=== PATIENT | female | born 1995 | race African-American/Black ===

== ENCOUNTER 2020-06-03 07:59 | Emergency (ER) | payer SELFPAY ==
[~2020-06-03] VITALS: Ht 167.6 cm; Wt 85.0 kg
[2020-06-03 07:59] VITALS: BP 167/100
--- NOTE | 2020-06-03 08:12 | PHYS DOC ---
Past Medical History Past Medical History: No Pertinent History Past Surgical History: No Surgical History Alcohol Use: None Drug Use: None General Adult EDM: Chief Complaint: hand injury HPI: HPI: 25-year-old female presents emergency department with a hand laceration on the dorsum of the hand. The patient comes in by EMS. Patient will not answer any of her questions. She allowed me to look at her wound but will not allow me to examine it closely or touch it. She is able to move her fingers without difficulty but will not allow me to touch her hand. It is unclear whether this laceration happened within 12 hours. My concern for repairing it is multiple: 1. She will not even allow me to examine her hand so I do not believe that she will allow me to repair the hand. 2. It is unclear how long this laceration has been present it does not appear extremely fresh but is not a week or more old. Patient will not tell me how old the wound is. Review of systems, past medical history, surgical history, allergies and social history are unable to be obtained because the patient will not answer any of my questions. ED course: 25-year-old female comes in with a hand laceration of unclear timeframe. The patient will not answer any of our questions, will not allow us to do vital signs. I have ordered for a tetanus to be updated. We will attempt to discuss with the patient about the importance of us examining the wound doing vital signs and providing medical care for her. Time is now 810. After further discussion with the patient she allowed us to evaluate the wound closer. It is a simple superficial laceration that is about 2-1/2 cm in length. There is no apparent foreign body after exploration of the wound. There is no debris. The wound appears to be less than 6 hours old after cleaning up the wound. It is a fresh wound. The patient cannot clarify the exact timeframe, however the the wound appears to be less than 6 hours old. Tetanus was updated. X-ray ordered. We will give the patient oral Keflex to prevent infection. X-ray shows cortical disruption at the base of the fifth metacarpal. Patient has a very flat affect. She does not have point tenderness in that area but she is a very poor historian and does not even answer yes or no. She does not wince when I press in that area. To be safe we will put the patient in a volar splint and refer her to orthopedic surgery. Otherwise she is to follow-up with her PCP for suture removal in 10 days. Heart Score: C/O Chest Pain: No Risk Factors: Risk Factors: DM, Current or recent (<one month) smoker, HTN, HLP, family history of CAD, obesity. Risk Scores: Score 0 - 3: 2.5% MACE over next 6 weeks - Discharge Home Score 4 - 6: 20.3% MACE over next 6 weeks - Admit for Clinical Observation Score 7 - 10: 72.7% MACE over next 6 weeks - Early Invasive Strategies Physical Exam: PE: Constitutional: Well developed, well nourished, no acute distress, non-toxic appearance. [] HENT: Normocephalic, atraumatic, bilateral external ears normal, oropharynx moist, no oral exudates, nose normal. [] Eyes: PERRLA, EOMI, conjunctiva normal, no discharge. [] Neck: Normal range of motion, no tenderness, supple, no stridor. [] Cardiovascular:Heart rate regular rhythm, no murmur [] Lungs & Thorax: Bilateral breath sounds clear to auscultation [] Abdomen: Bowel sounds normal, soft, no tenderness, no masses, no pulsatile masses. [] Skin: Warm, dry, no erythema, no rash. [] Back: No tenderness, no CVA tenderness. [] Extremities: The patient's right hand has a laceration that is approximately 2 cm in length. It is superficial and there does not appear to be any foreign body or tendon laceration associated. She is able to move her fingers but will not cooperate in make an A-OK giving thumbs up and crossing finger. She denies any numbness in her hand. She denies any other injuries. The remainder of her extremities are nontender with normal range of motion. Neurologic: Alert and oriented, normal motor function, normal sensory function, no focal deficits noted. [] Psychologic: Affect blunted, judgement normal, mood normal. denies si /hi. EKG: EKG: [] Radiology/Procedures: Radiology/Procedures: [] Course & Med Decision Making: Course & Med Decision Making Pertinent Labs and Imaging studies reviewed. (See chart for details) [] Dragon Disclaimer: Johanna Disclaimer: This electronic medical record was generated, in whole or in part, using a voice recognition dictation system. Departure Departure Impression: Primary Impression: Hand injury Additional Impression: Hand laceration Disposition: 01 DC HOME SELF CARE/HOMELESS Condition: STABLE Patient Instructions: Laceration Care, Adult Additional Instructions: EMERGENCY DEPARTMENT GENERAL DISCHARGE INSTRUCTIONS Follow-up with your primary physician in 10 days for suture removal. Follow-up with orthopedic surgery in 2 to 3 days for reevaluation of possible hand fracture. Return to the emergency department if you have any new or concerning findings. Thank you for coming to [facility] Emergency Department (ED) today and trusting us with you care. We trust that you had a positive experience in our Emergency Department. If you wish to speak to the department management, you may call the Director at [phone]. Follow up is important in emergency/acute care visits. This condition should be evaluated by your primary care physician and any necessary consulting services for continued management within a few days (1-2) after discharge. Return to the emergency department if you have any new or concerning symptoms including but not limited to fever, chills, nausea, vomiting, intractable pain, any new rashes, chest pain, shortness of breath, uncontrolled bleeding, difficulty breathing, and/or vision loss. 1. Do you have a private Doctor? If you do not have a private doctor, please ask for a resource list of physicians or clinics that may be able to assist you with follow up care. 2. If a lab test or culture has been done and does not come back immediately, your results will be reviewed and you will be notified if you need a change in treatment. 3. Your care today has been supervised by a physician who is specially trained in emergency care. Many problems require more than one evaluation for a complete diagnosis and treatment. We recommend that you schedule your follow up appointment as recommended to ensure complete treatment of you illness or injury. If you are unable to obtain follow up care and continue to have a problem, or if your condition worsens, we recommend that you return to the ED. 4. We are not able to safely determine your condition over the phone nor are we able to give sound medical advice over the phone. For these safety reasons, if you call for medical advice we will ask you to come to the ED for further evaluation. IF YOUR SYMPTOMS WORSEN OR NEW SYMPTOMS DEVELOP, OR YOU HAVE CONCERNS ABOUT YOUR CONDITION; OR IF YOUR CONDITION WORSENS WHILE YOU ARE WAITING FOR YOUR FOLLOW UP APPOINTMENT; EITHER CONTACT YOUR PRIMARY CARE DOCTOR, THE PHYSICIAN WHOSE NAME AND NUMBER YOU WERE GIVEN, OR RETURN TO THE ED IMMEDIATELY. Scripts Cephalexin (KEFLEX) 750 Mg Capsule 1 CAP PO TID for 7 Days, #21 CAP 0 Refills Prov: ROXANA CAMPUZANO MD 06/03/20 Laceration Repair Lac Repair Indication: laceration Procedure: The patient was placed in the appropriate position and anesthesia around the laceration with 3 cc of 1% lidocaine was used. The area was then c leansed with saline water and betadine. The laceration was sutured using simple interupted technique using 4-0 non absorable sutures. The wound area was then dressed with non adherant dressing. Total repaired wound length: 2.5 cm. Other Items: none The patient tolerated the procedure well. Complications: none. Splinting pt informed of findings. volar splint applied by material handling technician. The splint is checked by myself, and appropriate stabilization of the injury. Distal capillary refill nl and distal neurologic function intact. ROXANA CAMPUZANO MD Jun 03, 2020 08:11
[2020-06-03] MEDS ORDERED: LIDOCAINE 1% Multi-Dose 20 ML VIAL. ONE (08:15)
[2020-06-03] MEDS ORDERED: CEPH750C9 PO (08:39)
[2020-06-03] MEDS ORDERED: DIPH,PERTUSS(ACELL),TET VAC/PF 0.5 ML SYRINGE. VAX IM ONE (08:45)
--- NOTE | 2020-06-03 08:51 | RAD ---
Exam Date: 06/03/2020 8:35 AM XR HAND_RIGHT 3 VIEWS Indication: Reason: hand injury / Spl. Instructions: / History: FINDINGS/ IMPRESSION: There is question of cortical disruption involving the radial base of the fifth metacarpal, seen only on the PA view, raising suspicion for nondisplaced acute fracture. There may be mild adjacent soft t issue swelling along the medial aspect of the wrist. Correlate clinically for point tenderness at thi s site. Other visualized osseous structures are intact. Alignment and joint spaces are maintained. Electronically signed by: Bob Montenegro MD (06/03/2020 8:48 AM) [facility]
== END 2020-06-03 09:10 | disposition home or self-care (01) ==
LOC: ER 07:59
DX: S61.411A Laceration without foreign body of right hand, initial encounter (principal); Y28.8XXA Contact with other sharp object, undetermined intent, initial encounter; Y93.89 Activity, other specified; Y92.89 Other specified places as the place of occurrence of the external cause; Y99.8 Other external cause status
CPT/HCPCS: 12001; 73130; 90471; 90715; 99283